=== PATIENT | female | born 1970 | race Caucasian/White ===

== ENCOUNTER → 2021-04-07 | Outpatient (CLI) | payer OTHER | LOC: KOH-I 11:41 | DX: M54.2 Cervicalgia (principal); M54.9 Dorsalgia, unspecified; R05.9 Cough, unspecified; M17.12 Unilateral primary osteoarthritis, left knee | CPT/HCPCS: 71046; 72040; 72070; 72100; 73030; 73562 ==

== ENCOUNTER → 2022-01-19 | Outpatient (CLI) | payer OTHER | LOC: KOH-I 12:08 | DX: R05.9 Cough, unspecified (principal); M54.2 Cervicalgia; M54.6 Pain in thoracic spine; M54.50 Low back pain, unspecified | CPT/HCPCS: 71046; 72040; 72070; 72100 ==